=== PATIENT | female | born 1960 | race Caucasian/White ===

== ENCOUNTER → 2025-01-18 | Outpatient (CLI) | payer MEDICARE, SELFPAY | END | disposition home or self-care (01) | LOC: CDIM 15:16 | PROVIDERS: PCP Family Medicine; Referring Provider Family Medicine; Visit Provider Family Medicine | DX: Z53.8 Procedure and treatment not carried out for other reasons (principal) ==

== ENCOUNTER → 2025-02-07 | Outpatient (CLI) | payer MEDICARE, SELFPAY | END | disposition home or self-care (01) | PROVIDERS: PCP Family Medicine; Referring Provider Family Medicine; Visit Provider Family Medicine | DX: Z53.8 Procedure and treatment not carried out for other reasons (principal) ==

== ENCOUNTER 2025-02-12 08:07 | Inpatient (IN) | payer MEDICARE, SELFPAY ==
[2025-02-12] VITALS (10 sets, daily range): BP systolic 115–147; BP diastolic 60–99; PULSE 97–110; RESP 15–18; TEMP 36.2–37.1; O2SAT 93–99; BMI 19.9
--- NOTE | 2025-02-12 08:30 | PC.NURSE ---
PT HAD AN UNWITNESSED FALL AT HOME. PT SAYS SHE FELT DIZZY AND PASSED OUT. PT STATES SHE HIT THE RIGHT SIDE OF HER FOREHEAD ON A WOODEN CHAIR; SHE IS NOT ON BLOOD THINNERS. CONNECTED TO MONITOR W/ VS TAKEN. AT BEDSIDE. WILL CONT TO MONITOR.
--- NOTE | 2025-02-12 08:40 | PD.EDFALL ---
ED Fall Injury RME/HPI General Chief Complaint: Fall Stated Complaint: DIZZY, FALL, HIT R) FOREHEAD Time Seen by Provider: 02/12/25 08:30 Arrival date/time: 02/12/25 08:07 RME / HPI RME / HPI Narrative: DR. NELSON MAIN ED EVALUATION: 64 year old female presents to the Emergency Department [facility] with complaint of a fall. Patient was walking her pets out when she fell in the laundry room. She states she got dizzy and fell. She hit her head on a wooden chair; patient report a headache. She also has left foot pain/ left ankle pain and states she scraped her back. Related Data Home Medications ?Medication ?Instructions ?Recorded ?Confirmed amitriptyline 25 mg PO HS 08/08/18 11/20/20 gabapentin 600 mg PO TID 08/08/18 11/20/20 mirtazapine [Remeron] 15 mg PO HS 08/08/18 11/20/20 tramadol 50 mg PO QID 08/08/18 11/20/20 baclofen 10 mg tablet 10 mg PO TID 11/20/20 11/20/20 rosuvastatin 10 mg tablet (Crestor) 10 mg PO QDAY 11/20/20 11/20/20 zolpidem 10 mg tablet (Ambien) 10 mg PO HS 11/20/20 11/20/20 Allergies Allergy/AdvReac Type Severity Reaction Status Date / Time codeine Allergy Severe RASH AND Verified 11/20/20 10:07 HYPERACTIVITY Sulfa (Sulfonamide Allergy Severe HIVES Verified 11/20/20 10:07 Antibiotics) Review of Systems Review of Systems Systems Reviewed: All systems reviewed, normal except as documented Past Medical History Past Medical History MUSCULOSKELETAL: Positive Musculoskeletal Disorders OTHER HISTORY: Positive Blood Transfusions Surgical History SURGICAL: Positive Tubal Ligation Social History SMOKING STATUS: Current every day smoker SUBSTANCE USE: does not use ALCOHOL: Never ED Exam Narrative Physical exam: GENERAL APPEARANCE: alert and oriented x 4, well-developed, well-nourished, no acute distress VITALS: All vitals were reviewed and the pulse ox is 93% on room air, which is normal according to my interpretation. HEENT: Normocephalic, atraumatic appearing; pupils equal, round, reactive to light; EOMI; mucous membranes pink, moist; oropharynx clear NECK: Supple LUNGS: CTABL; no wheezes, no rales, no rhonchi HEART: Regular rate, regular rhythm; normal S1, S2; no murmurs ABDOMEN: non distended; normal BS; soft, no tenderness, no guarding, no rebound; no masses, no organomegaly, no hernia BACK: no CVA tenderness EXTREMITIES: atraumatic; no edema; no tenderness, deformity, or erythema of the left foot NEUROLOGIC: awake; alert and oriented x4; cranial nerves II-XII grossly intact; no focal sensory or motor deficits PSYCHIATRIC: appropriate mood and affect SKIN: There is an abrasion to the left posterior shoulder; otherwise rest of the skin exam is warm, dry, normal color; no rashes Course Quality Measures none Orders Category Date Time Status Admit to Inpatient Status Routine Admission 02/12/25 15:15 Active Patient Condition Routine Admission 02/12/25 15:14 Ordered Automotive Customer Experience Advisor NOW Care 02/12/25 08:51 Active EKG (ED ONLY) *Do not use* NOW Care 02/12/25 08:51 Completed Miscellaneous Nursing Order NOW Care 02/12/25 15:19 Active Notify provider NEEDED Care 02/12/25 15:14 Active Diet Regular Diet 02/12/[address] cervical spine wo con Stat Exams 02/12/25 08:[address] head/brain wo con Stat Exams 02/12/25 08:50 Completed EKG (ED Only) Stat Exams 02/12/25 08:51 Draft XR chest 1V portable Stat Exams 02/12/25 08:51 Completed B-Type Natriuretic Peptide Stat Lab 02/12/25 08:35 Completed CBC AM DRAW Lab 02/13/25 05:00 Ordered CBC AM DRAW Lab 02/14/25 05:00 Ordered CBC AM DRAW Lab 02/15/25 05:00 Ordered CBC Stat Lab 02/12/25 08:35 Completed Comprehensive Metabolic Panel AM DRAW Lab 02/13/25 05:00 Ordered Comprehensive Metabolic Panel AM DRAW Lab 02/14/25 05:00 Ordered Comprehensive Metabolic Panel AM DRAW Lab 02/15/25 05:00 Ordered Comprehensive Metabolic Panel Stat Lab 02/12/25 08:35 Completed Lactate (Lactic Acid) Stat Lab 02/12/25 10:47 Completed Magnesium AM DRAW Lab 02/13/25 05:00 Ordered Magnesium Stat Lab 02/12/25 08:35 Completed Partial Thromboplastin Time Stat Lab 02/12/25 08:35 Completed Phosphorous AM DRAW Lab 02/13/25 05:00 Ordered Procalcitonin Stat Lab 02/12/25 10:47 Completed Prothrombin Time with INR Stat Lab 02/12/25 08:35 Completed Thyroid Stimulating Hormone AM DRAW Lab 02/13/25 05:00 Ordered Troponin I Stat Lab 02/12/25 08:35 Completed UA, C/S IF [Urinalysis, C/S if Indicated] Stat Lab 02/12/25 11:46 Completed Urine Culture Stat Lab 02/12/25 11:46 Received Acetaminophen Tab [Tylenol Tab] Med 02/12/25 15:14 Active 650 mg PO Q6H PRN Enoxaparin [Lovenox] Med 02/12/25 21:00 Ordered 40 mg SC QDAY Ondansetron Inj [Zofran Inj] Med 02/12/25 15:14 Active 4 mg IV Q6H PRN Senna [Senokot] Med 02/12/25 15:14 Ordered 1 tab PO QDAY PRN Sodium Chloride 0.9% 1000 ml [Ns] 1,000 ml Med 02/12/25 13:18 Discontinued IV 999 mls/hr cefTRIAXone/D5w 1gm IV premix [Rocephin/D5w 1gm IV Med 02/12/25 12:41 Discontinued premix] 1 gm in 50 ml IV X1 Code Status Routine Oth 02/12/25 15:14 Ordered Oxygen Delivery PRN RT 02/12/25 15:14 Active Vital Signs Vital signs: Vital Signs Temperature 98.5 F 02/12/25 08:38 Pulse Rate 106 H 02/12/25 08:38 Respiratory Rate 17 02/12/25 08:38 Blood Pressure 121/99 H 02/12/25 08:38 Pulse Oximetry (%) 93 L 02/12/25 08:38 Oxygen Delivery Method Room Air 02/12/25 08:38 Fall MDM Narrative MDM Narrative:: Alexa Patterson am scribing for and in the presence of Dr. Nelson. Patient data External records reviewed:: [facility] previous records and EMS form Clinical information provided by:: patient and EMS Social determinants that could affect healthcare access:: substance use (marijuana at night to sleep) Patient has the following chronic illnesses:: Tubal Ligation How is presenting disease/condition affected by chronic disease/condition?: no chronic disease Evaluation data The following diagnostics were reviewed and interpreted by me:: lab results, radiology exam(s) and EKG tracing(s) (EKG#1: EKG at 0942 hours. Interpreted by me: sinus rhythm, rate 93, no acute ischemic changes) Lab and/or radiology exams considered but not ordered:: none Interpretation Summary: Procedure(s): XR chest 1V portable Accession Number(s): [id number] cc: Steve Lindo MD; Luz Nelson MD~ Examination: AP chest single view TECHNIQUE: Portable sitting AP chest single view Exam date and time: February 12, 2025 0908 hours INDICATIONS: Chest pain today. FINDINGS: Normal heart size No pneumonia or pulmonary edema Prominent osteopenia IMPRESSION: No pneumonia or pulmonary edema Dictated By: Steve Lindo MD Procedure(s): CT head/brain wo [facility] Accession Number(s): [id number] cc: Steve Lindo MD; Venkat Chaudhari MD; Luz Nelson MD~ Examination: CT brain head without contrast. 2-D sagittal coronal reconstructions Date and time of exam:February 12, 2025 1012 hours INDICATIONS: Syncopal episode today ground-level fall, head pain CTDI: vol (mGy):49 DLP: (mGycm):984 Technique: Multiple CT axial sections of the brain have been obtained, 5 mm slice thickness. Contrast has not been administered. 2-D sagittal, coronal reconstructions have been obtained Low dose protocols were performed. One or more of the following dose reduction techniques were used; automated exposure control, adjustment of the mA and/or KV according to patient size, use of iterative reconstruction technique. Findings: No significant ventricular enlargement. Intra-axial or extra-axial hemorrhage density is not seen. No mass effect or midline shift Basal cisterns are not remarkable. Fourth ventricle is midline. Cranial vault intact. Impression: Negative for acute hemorrhage, mass effect or midline shift Dictated By: Steve Lindo MD Procedure(s): CT cervical spine [facility] Accession Number(s): [id number] cc: Steve Lindo MD; Venkat Chaudhari MD; Luz Nelson MD~ Examination: CT cervical spine without contrast 2-D sagittal reconstructions 2-D coronal reconstructions 3-D reconstructions. Exam date and time:February 12, 2025 1012 hours INDICATIONS: Ground-level fall today with into the neck, neck pain CTDI:vol (mGy) 7.09 DLP: (mGycm) 153 Technique: Multiple 2 mm axial sections of the cervical spine have been obtained. The coronal and sagittal reconstructions have been obtained. 3-D reconstructions have been obtained. Low dose protocols were performed. One or more of the following dose reduction techniques were used; automated exposure control, adjustment of the mA and/or KV according to patient size, use of iterative reconstruction technique. Findings: Axial sections demonstrate intact base of the skull. C1 exhibit satisfactory relationship to the odontoid. No acute cervical vertebral body fracture seen. Alignment posterior spinous processes satisfactory. Impression: No acute cervical fracture. Dictated By: Steve Lindo MD Medications / Prescriptions Medications or Prescriptions considered but not ordered:: none Medication administrations:: Medication Administration History Acetaminophen (Acetaminophen 325 Mg Tablet) 650 mg PO Q6H PRN PRN Reason: Fever >100.3 or pain Stop: 03/14/25 15:13 Enoxaparin Sodium (Enoxaparin Sod Inj 40 Mg/0.4 Ml Syringe) 40 mg SC QDAY AUTUMN Stop: 02/26/25 20:59 Ondansetron HCl (Ondansetron Inj 2 Mg/Ml Inj 2 Ml) 4 mg IV Q6H PRN; Protocol PRN Reason: NAUSEA OR VOMITING Stop: 03/14/25 15:13 Sennosides (Senna Tablet) 1 tab PO QDAY PRN; Protocol PRN Reason: constipation Stop: 03/14/25 15:13 Discontinued Medications Ceftriaxone Sodium/Dextrose (Rocephin/D5w 1gm Iv Premix) 1 gm in 50 mls @ 100 mls/hr IV X1 ONE Stop: 02/12/25 13:10 Last Infusion: 02/12/25 13:35 Dose: Infused Documented By: Admin: 02/12/25 13:05 Dose: 100 mls/hr Documented By: LP Sodium Chloride (Ns) 1,000 mls @ 999 mls/hr IV .Q1H1M ONE Stop: 02/12/25 14:18 Last Infusion: 02/12/25 15:05 Dose: Infused Documented By: Admin: 02/12/25 13:46 Dose: 999 mls/hr Documented By: LP see above if any Consultations Consultation(s) initiated? (list below): Yes Consultation #1 (Physician, Specialty, Details): Discussed test HPI, PMHx, lab, radiology results and/or management with hospitalist. Will admit for further evaluation and management. Accepts patient for admission. Time: 15:00 Diagnosis Fall Differential Diagnosis: other (head contusion, brain bleed, fall) Most likely diagnosis given after review of the tests above:: Syncope UTI Sepsis Admission Indicated Admission indicated?: indicated Admission Request Was there a request for admission?: Yes Admission Attestation Admission request attestation: Discussed case with [] from Hospitalist service regarding admission. Discussed patients ED course, exam findings, labs, and radiology results. The Hospitalist [agrees,declines] to accept the patient for admission. Disposition Plan Disposition Plan: Admit Discharge Plan Plan Patient Disposition: Admit Acute Care w/in Hospital Prescriptions/Referrals Prescriptions/Med Rec: No Action tramadol 50 mg PO QID gabapentin 600 mg PO TID amitriptyline 25 mg PO HS mirtazapine [Remeron] 15 mg PO HS baclofen 10 mg Tablet 10 mg PO TID zolpidem [Ambien] 10 mg Tablet 10 mg PO HS rosuvastatin [Crestor] 10 mg Tablet 10 mg PO QDAY Referrals: Venkat Chaudhari MD [Primary Care Provider] - In 1 week Problem List Clinical Impression: Syncope, UTI (urinary tract infection), Sepsis Patient/Caregiver Discharge Instructions Print Language: Luxembourgish Stand Alone Forms: Mis Award Info., Patient Portal Info Letter
--- NOTE | 2025-02-12 08:50 | XR_ITS ---
Examination: CT brain head without contrast. 2-D sagittal coronal reconstructions Date and time of exam:February 12, 2025 1012 hours INDICATIONS: Syncopal episode today ground-level fall, head pain CTDI: vol (mGy):49 DLP: (mGycm):984 Technique: Multiple CT axial sections of the brain have been obtained, 5 mm slice thickness. Contrast has not been administered. 2-D sagittal, coronal reconstructions have been obtained Low dose protocols were performed. One or more of the following dose reduction techniques were used; automated exposure control, adjustment of the mA and/or KV according to patient size, use of iterative reconstruction technique. Findings: No significant ventricular enlargement. Intra-axial or extra-axial hemorrhage density is not seen. No mass effect or midline shift Basal cisterns are not remarkable. Fourth ventricle is midline. Cranial vault intact. Impression: Negative for acute hemorrhage, mass effect or midline shift
--- NOTE | 2025-02-12 08:50 | XR_ITS ---
Examination: CT cervical spine without contrast 2-D sagittal reconstructions 2-D coronal reconstructions 3-D reconstructions. Exam date and time:February 12, 2025 1012 hours INDICATIONS: Ground-level fall today with into the neck, neck pain CTDI:vol (mGy) 7.09 DLP: (mGycm) 153 Technique: Multiple 2 mm axial sections of the cervical spine have been obtained. The coronal and sagittal reconstructions have been obtained. 3-D reconstructions have been obtained. Low dose protocols were performed. One or more of the following dose reduction techniques were used; automated exposure control, adjustment of the mA and/or KV according to patient size, use of iterative reconstruction technique. Findings: Axial sections demonstrate intact base of the skull. C1 exhibit satisfactory relationship to the odontoid. No acute cervical vertebral body fracture seen. Alignment posterior spinous processes satisfactory. Impression: No acute cervical fracture.
--- NOTE | 2025-02-12 08:51 | XR_ITS ---
Examination: AP chest single view TECHNIQUE: Portable sitting AP chest single view Exam date and time: February 12, 2025 0908 hours INDICATIONS: Chest pain today. FINDINGS: Normal heart size No pneumonia or pulmonary edema Prominent osteopenia IMPRESSION: No pneumonia or pulmonary edema
--- NOTE | 2025-02-12 08:51 | EKG_ITS ---
[facility] Test Date: 2025-02-12 Pat Name: GRETCHEN DOUGLAS Department: Room: - Gender: Female Marketing Support Coordinator: : 1960 Requested By: Luz Flores Order Number: [id number] Reading MD: Luz Flores Measurements Intervals [place] Rate: 93 P: 75 AL: 159 QRS: 72 QRSD: 79 T: 76 QT: 329 QTc: 409 Interpretive Statements SINUS RHYTHM WITH OCCASIONAL VENTRICULAR PREMATURE COMPLEXES No previous ECG available for comparison /store/S0/[id number]/ecg/[id number].pdf
[2025-02-12 09:49] LABS: Basophils % (Auto) 0 % (0-2.5); Eosinophils % (Auto) 0 % (0-10); Hematocrit 36.5 % (36.0-46.0); Hemoglobin 12.5 g/dL (12.0-16.0); Immature Granulocytes % (Auto) 2 % (0-0); Immature Granulocytes Auto 0.29 Thou/mm3 (0.00-0.00); Lymphocytes # (Auto) 0.9 Thou/mm3 (1.0-4.8); Lymphocytes % (Auto) 5 % (10-50); Mean Corpuscular HGB Conc 34.2 g/dl (31.0-37.0); Mean Corpuscular Volume 96 fL (80-100); Monocytes # (Auto) 1.7 Thou/mm3 (0.0-0.8); Monocytes % (Auto) 9 % (0-12); Neutrophils # (Auto) 16.2 Thou/mm3 (1.8-7.7); Neutrophils % (Auto) 85 % (37-80); Nucleated Red Blood Cell % 0 /100 WBC (0); Platelet Count 321 Thou/mm3 (140-440); RDW Standard Deviation 47.4 fL (36.4-46.3); Red Blood Count 3.79 Miln/mm3 (4.00-5.20); White Blood Count 19.1 Thou/mm3 (3.6-11.0)
[2025-02-12 10:06] LABS: INR 0.9 (0.9-1.3); Partial Thromboplastin Time 26.8 Seconds (22.0-36.0); Prothrombin Time 10.4 Seconds (9.0-12.2)
[2025-02-12 10:07] LABS: Alanine Aminotransferase 70 U/L (10-49); Albumin/Globulin Ratio 1.3 (1.2-2.2); Alkaline Phosphatase 248 U/L (46-116); Anion Gap 8 (7-16); Aspartate Amino Transferase 56 U/L (0-34); BUN/Creatinine Ratio 19 Ratio (12-20); Bilirubin,Total 0.3 mg/dL (0.3-1.2); Blood Urea Nitrogen 29 mg/dL (9-23); Calcium 9.1 mg/dL (8.3-10.6); Calcium (Corrected) 9.1 mg/dL (8.5-10.1); Chloride 108 mMol/L (98-107); Creatinine (Component) 1.5 mg/dL (0.6-1.3); Glucose 97 mg/dL (74-106); Magnesium 2.2 mg/dL (1.6-2.6); Osmolality,Calculated 287 (275-295); Potassium 3.8 mMol/L (3.4-5.1); Sodium 141 mMol/L (136-145); Troponin I < 0.020 ng/mL (0.0-0.045); eGFR 38 See Note
[2025-02-12 10:29] LABS: B-Type Natriuretic Peptide 53 pg/mL (0-100)
[2025-02-12 10:55] LABS: Lactate (Lactic Acid) 0.8 mMol/L (0.4-2.0)
[2025-02-12 11:19] LABS: Procalcitonin 17.64 ng/ml (0.0-0.49)
[2025-02-12 11:52] LABS: Collection Type, Urine Clean Catch
[2025-02-12 12:34] LABS: Bacteria,Urine 3+; Bilirubin,Urine Negative (Negative); Blood,Urine 2+ (Negative); Clarity,Urine Turbid (Clear/Hazy); Color,Urine Lt-Yellow (Lt Yel-Yel); Glucose, Urine Negative (Negative); Ketones,Urine Trace (Negative); Leukocyte Esterase,Urine Positive (Negative); Nitrite,Urine Negative (Negative); Protein,Urine 1+ (Neg - Trace); RBC,Urine 74 /hpf (0-3); Squamous Epithelial Cell,Urine < 1 /hpf (0-5); Transitional Epi Cells,Urine 1 /hpf (0-5); Urobilinogen,Urine Negative mg/dL (0.0-1.0); WBC,Urine 328 /hpf (0-5)
[2025-02-12 12:53] LABS: Culture Indicated,Urine Yes
[2025-02-12] MEDS: cefTRIAXone/D5w 1gm IV premix 1 GM/50 ML BAG IV (13:05)
[2025-02-12] MEDS: SODIUM CHLORIDE 0.9% 1000 ML 1,000 ML 999 ML IV ×2 (13:46→16:48)
--- NOTE | 2025-02-12 16:26 | PD.RESHP ---
Documentation for date of: 02/12/25 [facility] History of Present Illness Chief complaint: keep falling History of present illness: Kimmie Wild is 64 yr female with PMH of, hypertension, neuropathy, chronic back pain, and insomnia who presenting to the ED today from home due to frequent falls. Patient has been experiencing increased number of falls since past month with about 5?6 in the past week. This morning patient fell twice while getting up from the sofa. She felt slightly dizzy and fell while was trying to support her. Patient hit her head on the chair and landed on her back. She denies any loss of consciousness, no prodromal symptoms, and dizziness resolves rapidly. Also denies any chest pain, shortness of breath, nausea, vomiting. She is able to get up slowly with help from her . No major injuries except for some brusing. Patient endorses decreased appetite and dysuria for past 2 days. In ED, vitals were stable. CBC showing leukocytosis 19, CMP significant for elevated creatinine 1.5 (no baseline to compare with in chart review), GFR 38, lactic acid normal 0.8, mild transaminitis AST 56/ALT 70/ALP 248, elevated Pro-Zoran 17. UA positive for UTI with WBC 328, leukocyte esterase positive, 3+ bacteria. Chest imaging negative for active disease, CT head negative for acute changes, cervical spine negative, EKG showing no ST changes--in normal sinus rhythm. Patient was given 1 bolus of fluids and 1 g Rocephin x 1. Patient to be admitted for management of UTI with antibiotics and evaluation of frequent falls. PMH: As noted above PSH: Appendectomy, cholecystectomy, back surgery at the age of 18 FamHx: Unknown Social: Currently unemployed used to work at [employer], started smoking at the age of 7 (has been trying to quit, weaned down to approximately 5 cigarettes/day). Denies drinking, drug use. Allergies: Codeine, sulfa antibiotics Meds: Gabapentin 300 3 times daily, amlodipine 2.5 daily, baclofen 20 twice daily, amitriptyline 25 mg at bedtime, olmesartan 5mg daily Review of Systems Constitutional Constitutional: Reports system reviewed and no additional complaints, except as documented Exam Vital Signs Temp Pulse Resp BP Pulse Ox O2 Del Method 98.4 F 100 18 132/61 H 96 Room Air 02/12/25 14:15 02/12/25 14:15 02/12/25 14:15 02/12/25 14:15 02/12/25 14:15 02/12/25 14:15 Narrative Exam General: Elderly lady, no acute distress, cooperative HEENT: NCAT, No JVD noted. Mucosa dry, missing front teeth. Pupils are equal and reactive to light bilaterally Cardiovascular: Normal S1 and S2. Regular rate and rhythm. Respiratory: Lungs are clear to auscultation bilaterally. No wheezing or crackles heard. Abdomen: Soft, nontender, not distended, normal bowel sounds. Skin: Warm to touch, dry, no rashes noted. Bruising noticed on knees bilaterally Musculoskeletal: No gross injuries. Able to move all 4 extremities. No pitting edema Neuro: Alert and oriented x3. No focal neuro deficits. Psych: Normal affect and mood Results: Labs 02/12/25 08:35 02/12/25 08:35 Labs: Short CBC 02/12/25 Range/Units 08:35 WBC 19.1 H (3.6-11.0) Thou/mm3 Hgb 12.5 (12.0-16.0) g/dL Hct 36.5 (36.0-46.0) % Plt Count 321 (140-440) Thou/mm3 BMP 02/12/25 08:35 Sodium 141 Potassium 3.8 Chloride 108 H Carbon Dioxide 25.0 BUN 29 H Creatinine 1.5 H Glucose 97 Calcium 9.1 Cardiac Enzymes 02/12/25 Range/Units 08:35 Troponin I < 0.020 (0.0-0.045) ng/mL Liver Function 02/12/25 Range/Units 08:35 Total Bilirubin 0.3 (0.3-1.2) mg/dL AST 56 H (0-34) U/L ALT 70 H (10-49) U/L Alkaline Phosphatase 248 H (46-116) U/L Albumin 4.0 (3.4-4.8) gm/dL Urine 02/12/25 Range/Units 11:46 Urine Color Lt-Yellow (Lt Yel-Yel) Urine Clarity Turbid A (Clear/Hazy) Urine pH 6.0 (5.0-7.0) Ur Specific [place] 1.010 (1.001-1.035) Urine Protein 1+ A (Neg - Trace) Urine Glucose (UA) Negative (Negative) Quality Measures Quality Measures none Advance care planning discussed with:: patient Medications Home Medications and Allergies Home Medications ?Medication ?Instructions ?Recorded ?Confirmed ?Type amitriptyline 25 mg PO HS 08/08/18 11/20/20 History gabapentin 600 mg PO TID 08/08/18 11/20/20 History mirtazapine [Remeron] 15 mg PO HS 08/08/18 11/20/20 History tramadol 50 mg PO QID 08/08/18 11/20/20 History baclofen 10 mg tablet 10 mg PO TID 11/20/20 11/20/20 History rosuvastatin 10 mg tablet (Crestor) 10 mg PO QDAY 11/20/20 11/20/20 History zolpidem 10 mg tablet (Ambien) 10 mg PO HS 11/20/20 11/20/20 History Allergies Allergy/AdvReac Type Severity Reaction Status Date / Time codeine Allergy Severe RASH AND Verified 11/20/20 10:07 HYPERACTIVITY Sulfa (Sulfonamide Allergy Severe HIVES Verified 11/20/20 10:07 Antibiotics) Visit Medications Acetaminophen (Acetaminophen 325 Mg Tablet) 650 mg PO Q6H PRN PRN Reason: Fever >100.3 or pain Stop: 03/14/25 15:13 Enoxaparin Sodium (Enoxaparin Sod Inj 40 Mg/0.4 Ml Syringe) 40 mg SC HS AUTUMN Stop: 02/26/25 20:59 Sodium Chloride (Ns) 1,000 mls @ 999 mls/hr IV .Q1H1M ONE Stop: 02/12/25 17:18 Sodium Chloride (Ns) 1,000 mls @ 75 mls/hr IV .[id number] ONE Stop: 02/13/25 10:19 Ceftriaxone Sodium/Dextrose (Rocephin/D5w 1gm Iv Premix) 1 gm in 50 mls @ 100 mls/hr IV QDAY@1400 AUTUMN Stop: 02/20/25 13:59 Ondansetron HCl (Ondansetron Inj 2 Mg/Ml Inj 2 Ml) 4 mg IV Q6H PRN; Protocol PRN Reason: NAUSEA OR VOMITING Stop: 03/14/25 15:13 Sennosides (Senna Tablet) 1 tab PO QDAY PRN; Protocol PRN Reason: constipation Stop: 03/14/25 15:13 Discontinued Medications Ceftriaxone Sodium/Dextrose (Rocephin/D5w 1gm Iv Premix) 1 gm in 50 mls @ 100 mls/hr IV X1 ONE Stop: 02/12/25 13:10 Last Infusion: 02/12/25 13:35 Dose: Infused Sodium Chloride (Ns) 1,000 mls @ 999 mls/hr IV .Q1H1M ONE Stop: 02/12/25 14:18 Last Infusion: 02/12/25 15:05 Dose: Infused Assessment & Plan Plan Kimmie Wild is 64 yr female with PMH of, hypertension, neuropathy, chronic back pain, and insomnia who presenting to the ED today from home due to frequent falls. Patient has been experiencing increased number of falls since past month with about 5?6 in the past week. She denies any loss of consciousness, no prodromal symptoms, and dizziness resolves rapidly. Patient endorses decreased appetite and dysuria for past 2 days. #Frequent falls Patient has been experiencing increased number of falls in the past month with 5-6 in the past week. Does not lose any loss of consciousness, no prodromal symptoms. May be due to polypharmacy, orthostatic hypotension, cardiac etiology, decreased oral intake. CT head, cervical spine negative for acute changes. - orthostatic vitals ?Echo pending ? Physical therapy -TSH pending #Uncomplicated UTI # Leukocytosis Patient endorses decreased appetite and dysuria for past 2 days. UA positive for UTI with WBC 328, leukocyte esterase positive, 3+ bacteria. - Urine culture pending ? Continue IV Rocephin 1 g daily for 7 days #MARIUM Cr 1.5, GFR 38, BUN/creatinine< 20 indicating that etiology is less likely prerenal cause. However during history taking patient has endorsed decreased appetite with decreased water intake. No recent baseline creatinine noted in chart. -maintenance fluids tonight after another 1L bolus -avoid nephrotoxic agents -daily CMP #Transaminitis AST 56, ALT 70, ALP 248 on admission. May be due to dehydration. Physical exam is benign. - Monitor LFTs with fluids #Hx neuropathy #Hx hypertension #Hx COPD #Hx Chronic back pain #Hx Insomnia Resume home meds after rec. Health maintenance: Dispo: UTI, eval for frequent falls FEN: regular DVT prophylaxis:Lovenox CODE STATUS: Full code The patient's management plan was discussed with my attending physician Dr. Lam. Joseline Resendiz, PGY-1 Attending Provider Attestation/Addendum I attest that I was physically present for the evaluation, physical examination, lab and imaging review of the patient with the residents. I discussed the case with the residents and agree with the findings and plans of care as documented above. Patient is a 64 years old female with past medical history of hypertension, neuropathy, chronic back pain and insomnia who presented to the ED with complaint of frequent falls. Patient had about 5 to 6 months of falls in the last week. She has been feeling dizzy and having the fall whenever she tries to get up from her sitting position. Denied any loss of consciousness, headache, nausea or vomiting but stated it her head was falling. In the ED, vitals are within normal limits. CBC shows WBC of 19, CMP shows creatinine of 1.5, mild AST and ALT elevation at 56/70. ALP 248, procalcitonin 17. UA was obtained, shows WBC of 328, positive leukocyte esterase and 3+ bacteria. CT head was also obtained which is negative for acute hemorrhage, mass effect or midline shift. Chest imaging, cervical spine CT, EKG were unremarkable. We will admit the patient for management of frequent falls, concerning for orthostatic hypotension. We will obtain orthostatic vitals, echocardiography, physical therapy. We will also start her on IV antibiotics for UTI, we will obtain cultures. Unsure of patient's baseline creatinine, we will start her on IV hydration for MARIUM. We will follow-up on her liver panel after the IV hydration, if does not improve we will plan for liver ultrasound. So Lam MD
--- NOTE | 2025-02-12 16:50 | PC.NURSE ---
REPORT CALLED TO DASHA BARNES ON [facility]. PT WILL BE TRANSFERRED TO ROOM [address] [facility]
--- NOTE | 2025-02-12 17:30 | PC.NURSE ---
PT TRANSFERRED TO ROOM 355 VIA GURNEY ACCOMPANIED BY RN. CARE ENDORSED TO DASHA BARNES.
[2025-02-12] MEDS: ACETAMINOPHEN 325 MG TABLET 650 MG PO (20:20)
[2025-02-12] MEDS: SODIUM CHLORIDE 0.9% 1000 ML 1,000 ML 75 ML IV (20:20)
[2025-02-12] MEDS: ENOXAPARIN SOD INJ 40 MG/0.4 ML SYRINGE SC (20:21)
--- NOTE | 2025-02-12 20:42 | PC.NURSE ---
Dr. Arzate notified of patient's unrelieved generalized pain from recent fall. Awaiting new orders.
[2025-02-12] MEDS: HYDROcodone/APAP 5/325 TABLET 1 TAB PO (21:15)
[2025-02-13] VITALS (10 sets, daily range): BP systolic 128–153; BP diastolic 66–79; PULSE 85–108; RESP 16–99; TEMP 36.1–37.1; O2SAT 92–98
[2025-02-13] MEDS: HYDROcodone/APAP 5/325 TABLET 1 TAB PO ×2 (03:01→09:38)
[2025-02-13] MEDS: BACLOFEN 10 MG TABLET PO ×3 (08:18→21:31)
[2025-02-13] MEDS: amLODIPine BESYLATE 2.5 MG TABLET PO (08:18)
[2025-02-13] MEDS: GABAPENTIN 300 MG CAPSULE 600 MG PO ×3 (08:18→21:31)
[2025-02-13 09:05] LABS: Basophils # (Auto) 0.1 Thou/mm3 (0.0-0.2); Basophils % (Auto) 0 % (0-2.5); Eosinophils # (Auto) 0.1 Thou/mm3 (0.0-0.5); Eosinophils % (Auto) 0 % (0-10); Hemoglobin 12.1 g/dL (12.0-16.0); Immature Granulocytes % (Auto) 2 % (0-0); Immature Granulocytes Auto 0.27 Thou/mm3 (0.00-0.00); Lymphocytes # (Auto) 1.1 Thou/mm3 (1.0-4.8); Lymphocytes % (Auto) 8 % (10-50); Mean Corpuscular HGB Conc 33.6 g/dl (31.0-37.0); Mean Corpuscular Hemoglobin 32.2 pg (25.0-35.0); Mean Corpuscular Volume 96 fL (80-100); Monocytes % (Auto) 7 % (0-12); Neutrophils # (Auto) 11.2 Thou/mm3 (1.8-7.7); Neutrophils % (Auto) 82 % (37-80); Nucleated Red Blood Cell % 0 /100 WBC (0); Platelet Count 368 Thou/mm3 (140-440); RDW Standard Deviation 47.4 fL (36.4-46.3); Red Blood Count 3.76 Miln/mm3 (4.00-5.20); White Blood Count 13.6 Thou/mm3 (3.6-11.0)
--- NOTE | 2025-02-13 09:40 | PC.NURSE ---
Pt's Left Lower Extremity swollen and weak. Told patient that she must remain in bed until PT eval. Patient refuses to stay in bed. Will not use bedpan or comode. Pt states, I can call you to come help me to the restroom or I can go on my own and the alarm will just make a lot of noise. That's up to you. I told patient it is for her safety that we have PT do their assessment first. I let her know I would call PT to see when the soonest is they can come. She said that is fine but she will not stay in bed. Bed is low, locked, side rails up X2, and alarm is on.
[2025-02-13 09:50] LABS: Alanine Aminotransferase 56 U/L (10-49); Albumin, Serum 3.9 gm/dL (3.4-4.8); Albumin/Globulin Ratio 1.3 (1.2-2.2); Alkaline Phosphatase 263 U/L (46-116); Anion Gap 7 (7-16); Aspartate Amino Transferase 42 U/L (0-34); BUN/Creatinine Ratio 21 Ratio (12-20); Bilirubin,Total 0.5 mg/dL (0.3-1.2); Blood Urea Nitrogen 17 mg/dL (9-23); Calcium 8.7 mg/dL (8.3-10.6); Calcium (Corrected) 8.8 mg/dL (8.5-10.1); Chloride 112 mMol/L (98-107); Creatinine (Component) 0.8 mg/dL (0.6-1.3); Estimated Creatinine Clearance 59.4 mL/min (>60); Globulin 3.1 gm/dL (2.3-3.5); Glucose 102 mg/dL (74-106); Magnesium 1.8 mg/dL (1.6-2.6); Osmolality,Calculated 286 (275-295); Phosphorous 3.3 mg/dL (2.4-5.1); Potassium 3.1 mMol/L (3.4-5.1); Sodium 143 mMol/L (136-145); Thyroid Stimulating Hormone 0.89 uIU/mL (0.55-4.78); eGFR > 60 See Note
[2025-02-13] MEDS: POTASSIUM CHLORIDE 20 mEq TABCR 40 MEQ PO ×2 (11:37→12:41)
--- NOTE | 2025-02-13 12:36 | XR_ITS ---
Examination: Left foot 2 views Technique one AP lateral left foot 2 views Exam date and time: February 13, 2025 1324 hours INDICATIONS: Patient fell today with injury to foot, foot pain. FINDINGS: Prominent osteopenia Subtle radiolucency involving the proximal aspect third metatarsal 8mm plantar bony calcaneal spur IMPRESSION: Recommend oblique foot follow-up to exclude nondisplaced fracture proximal third metatarsal
--- NOTE | 2025-02-13 13:40 | ESPR_ITS ---
Documentation for date of: 02/13/25 Subjective Subjective Interval history: Patient seen and examined at bedside. No events overnight. Patient complains of LL foot pain, left sided body pain from fall. This morning daughter was also at beside. Daughter was adamant about giving patient a shower before PT evaluation. They were strongly advised against this with risks of falling. However patient still stood and walked for shower. Left foot was swollen and tender, foot xray negative for definitive fracture. Radiolgy rec to repeat xray in 1-2 days. Continue with Tylenol and [place] 10 every 4 hours as needed for pain and Colin wrap with ice. Exam Vital Signs Temp Pulse Resp BP Pulse Ox O2 Del Method 98.8 F 93 18 145/73 H 92 L Room Air 02/13/25 12:00 02/13/25 12:00 02/13/25 12:00 02/13/25 12:00 02/13/25 12:00 02/13/25 12:00 Narrative Exam General: Elderly lady, no acute distress, cooperative HEENT: NCAT, No JVD noted. Mucosa dry, missing front teeth. Pupils are equal and reactive to light bilaterally Cardiovascular: Normal S1 and S2. Regular rate and rhythm. Respiratory: Lungs are clear to auscultation bilaterally. No wheezing or crackles heard. Abdomen: Soft, nontender, not distended, normal bowel sounds. Skin: Warm to touch, dry, no rashes noted. Bruising noticed on knees bilaterally Musculoskeletal: Left foot swollen and tender to touch. Able to move all 4 extremities. No pitting edema Neuro: Alert and oriented x3. No focal neuro deficits. Psych: Normal affect and mood Objective Labs 02/13/25 08:00 02/13/25 08:00 Labs: Laboratory Results - last 24 hr 02/13/25 08:00 WBC 13.6 H D RBC 3.76 L Hgb 12.1 Hct 36.0 MCV 96 MCH 32.2 MCHC 33.6 RDW Std Deviation 47.4 H Plt Count 368 D Neut % (Auto) 82 H Lymph % (Auto) 8 L Christian % (Auto) 7 Eos % (Auto) 0 Baso % (Auto) 0 Neut # (Auto) 11.2 H Lymph # (Auto) 1.1 Christian # (Auto) 1.0 H Eos # (Auto) 0.1 Baso # (Auto) 0.1 Immature Gran # (Auto) 0.27 H Absolute Nucleated RBC 0.00 Immature Gran % 2 H Nucleated RBC % 0 Sodium 143 Potassium 3.1 L D Chloride 112 H Carbon Dioxide 24.0 Anion Gap 7 BUN 17 Creatinine 0.8 D Estim Creat Clear Calc 59.4 L eGFR > 60 BUN/Creatinine Ratio 21 H Glucose 102 Calculated Osmolality 286 Calcium 8.7 Corrected Calcium 8.8 Phosphorus 3.3 Magnesium 1.8 Total Bilirubin 0.5 AST 42 H ALT 56 H Alkaline Phosphatase 263 H Total Protein 7.0 Albumin 3.9 Globulin 3.1 Albumin/Globulin Ratio 1.3 TSH 0.89 Quality Measures Quality Measures none Advance care planning discussed with:: patient Assessment & Plan Assessment Current Active Medications: Generic Name Dose Route Start Last Admin Trade Name Freq PRN Reason Stop Dose Admin Acetaminophen 650 mg 02/12/25 20:47 Acetaminophen 325 Mg Tablet PO 03/14/25 15:13 Q6H PRN Fever >100.3 or pain Hydrocodone Bitart/Acetaminophen 1 tab 02/13/25 12:19 Hydrocodone/Apap 10/325 Tab PO 02/18/25 12:18 Q4HR PRN PAIN 4-10 Amitriptyline HCl 25 mg 02/13/25 21:00 Amitriptyline Hcl 25 Mg Tablet PO 03/15/25 20:59 HS AUTUMN Amlodipine Besylate 2.5 mg 02/13/25 09:00 02/13/25 08:18 Amlodipine Besylate 2.5 Mg Tablet PO 03/15/25 08:59 2.5 mg QDAY AUTUMN Administration Atorvastatin Calcium 40 mg 02/13/25 21:00 Atorvastatin Calcium 20 Mg Tablet PO 03/15/25 20:59 QPM AUTUMN Baclofen 10 mg 02/13/25 08:15 02/13/25 08:18 Baclofen 10 Mg Tablet PO 03/15/25 08:14 10 mg TID AUTUMN Administration Diphenhydramine HCl 25 mg 02/13/25 21:00 Diphenhydramine Elix 25 Mg/10 Ml Udc PO 03/15/25 20:59 HS AUTUMN Gabapentin 600 mg 02/13/25 08:15 02/13/25 08:18 Gabapentin 300 Mg Capsule PO 03/15/25 08:14 600 mg TID AUTUMN Administration Heparin Sodium (Porcine) 5,000 unit 02/13/25 09:00 02/13/25 09:37 Heparin Sod Inj 5000 Unit/Ml Vial SC 02/27/25 08:59 Not Given Q12HR [facility] Ceftriaxone Sodium/Dextrose 1 gm in 50 mls @ 100 mls/hr 02/13/25 14:00 Rocephin/D5w 1gm Iv Premix IV 02/20/25 13:59 QDAY@1400 [facility] Home Medication- 1 puff 02/13/25 08:15 02/13/25 08:21 Please Speak With IH 03/15/25 08:14 Not Given Patient Caregiver To Q12H [facility] Have Rx Brought To [facility] Ondansetron HCl 4 mg 02/12/25 15:14 Ondansetron Inj 2 Mg/Ml Inj 2 Ml IV 03/14/25 15:13 Q6H PRN NAUSEA OR VOMITING Protocol Sennosides 1 tab 02/12/25 15:14 Senna Tablet PO 03/14/25 15:13 QDAY PRN constipation Protocol Plan Kimmie Wild is 64 yr female with PMH of, hypertension, neuropathy, chronic back pain, and insomnia who presenting to the ED today from home due to frequent falls. Patient has been experiencing increased number of falls since past month with about 5?6 in the past week. She denies any loss of consciousness, no prodromal symptoms, and dizziness resolves rapidly. Patient endorses decreased appetite and dysuria for past 2 days. #Frequent falls # Injury of left foot Patient has been experiencing increased number of falls in the past month with 5-6 in the past week. Does not lose any loss of consciousness, no prodromal symptoms. May be due to polypharmacy, orthostatic hypotension, cardiac etiology, decreased oral intake. CT head, cervical spine negative for acute changes. Left foot x-ray negative for any acute fracture TSH 0.89 - orthostatic vitals ?Echo pending ? Physical therapy ? Radiology recommendations to repeat imaging of foot in 1-2 days ? Continue with pain management Tylenol and [place] 10 q4hr PRn - Colin wrap and ice #Uncomplicated UTI # Leukocytosis Patient endorses decreased appetite and dysuria for past 2 days. UA positive for UTI with WBC 328, leukocyte esterase positive, 3+ bacteria. - Urine culture pending ? Continue antibiotics for 3 to 5 days #MARIUM Cr 1.5, GFR 38, BUN/creatinine< 20 indicating that etiology is less likely prerenal cause. However during history taking patient has endorsed decreased appetite with decreased water intake. No recent baseline creatinine noted in chart. -maintenance fluids tonight after another 1L bolus -avoid nephrotoxic agents -daily CMP #Transaminitis AST 56, ALT 70, ALP 248 on admission. May be due to dehydration. Physical exam is benign. - Monitor LFTs #Hx neuropathy #Hx hypertension #Hx COPD #Hx Chronic back pain #Hx Insomnia Resume home meds after rec. Health maintenance: Dispo: UTI, eval for frequent falls FEN: regular DVT prophylaxis:Lovenox CODE STATUS: Full code The patient's management plan was discussed with my attending physician Dr. Patel. Joseline Resendiz, PGY-1
[2025-02-13] MEDS: cefTRIAXone/D5w 1gm IV premix 1 GM/50 ML BAG IV (14:21)
[2025-02-13] MEDS: HYDROcodone/APAP 10/325 TAB PO ×3 (14:23→22:36)
--- NOTE | 2025-02-13 15:32 | XR_ITS ---
Examination: AP oblique lateral single view Technique: AP oblique left foot single view Exam date and time: February 13, 2025 1621 hrs. Comparison AP lateral left foot February 13, 2025 1327 hrs. Indications: Patient fell today with injury to foot, foot pain Findings: Prominent osteopenia No definite acute metatarsal or other fracture Impression: No definite foot fracture Suggest 1-2 day follow-up films as clinically warranted
--- NOTE | 2025-02-13 16:23 | ECHO_ITS ---
Transthoracic Echo Report Ht (in): 65 Wt (lb): 119 Exam Location: Echo Lab Status: Inpatient Line Therapist: Olga Westfall Indications: Procedure Performed: BP: 148 / 79 HR: 103 Technical Quality: Technically difficult study MEASUREMENTS (Male / Female) Normal Values 2D ECHO LV Diastolic Diameter PLAX 4.7 cm 4.2 - 5.9 / 3.9 - 5.3 cm LV Systolic Diameter PLAX 3.0 cm IVS Diastolic Thickness 1.0 cm 0.6 - 1.0 / 0.6 - 0.9 cm LVPW Diastolic Thickness 1.0 cm 0.6 - 1.0 / 0.6 - 0.9 cm LV Relative Wall Thickness 0.4 LVOT Diameter 1.9 cm Aortic Root Diameter 2.3 cm LA Systolic Diameter LX 3.1 cm 3.0 - 4.0 / 2.7 - 3.8 cm LA Volume Index 24.0 cm?/m? 16 - 28 cm?/m? DOPPLER AV Peak Velocity 125.0 cm/s AV Peak Gradient 6.3 mmHg AV Mean Gradient 3.0 mmHg AV Velocity Time Integral 28.0 cm LVOT Peak Velocity 99.8 cm/s LVOT Peak Gradient 4.0 mmHg LVOT Velocity Time Integral 22.5 cm LVOT Cardiac Index 4187.4 cm?/min?m? AV Area Cont Eq vti 2.3 cm? AV Area Cont Eq pk 2.3 cm? MV Area PHT 5.8 cm? MR Peak Velocity 378.5 cm/s MR Peak Gradient 57.3 mmHg Mitral E Point Velocity 74.7 cm/s Mitral A Point Velocity 95.1 cm/s Mitral E to A Ratio 0.8 LV E' Lateral Velocity 9.1 cm/s Mitral E to LV E' Lateral Ratio 8.2 LV E' Septal Velocity 8.4 cm/s Mitral E to LV E' Septal Ratio 8.9 FINDINGS Left Ventricle Normal left ventricular size, systolic function with no obvious regional wall motion abnormalities. Mild LVH. Normal left ventricular diastolic filling pattern for age. The ejection fraction is visually estimated at 55- 60 %. Right Ventricle The right ventricle is normal in size and systolic function. Left Atrium The left atrium is normal by two-dimensional, color flow and Doppler imaging with no structural abnormalities, no thrombus formation present. Right Atrium The right atrium is normal by two-dimensional imaging, color flow and Doppler imaging with no structural abnormalities, no thrombus formation present. Atrial Septum The interatrial septum appears normal with no evidence of a shunt. Aorta The aorta is normal by two-dimensional, color flow and Doppler interrogation. Mitral Valve Mild mitral regurgitation. Aortic Valve The aortic valve is not well visualized. Tricuspid Valve The tricuspid valve is normal by two-dimensional, color flow and Doppler interrogation. There is trace tricuspid valve regurgitation. Pulmonic Valve The pulmonic valve is not well visualized. There is no significant pulmonic valve regurgitation. Vessels The pulmonary artery appears normal. The inferior vena cava pulmonary and hepatic veins appear normal. Pericardium The pericardium is normal by two-dimensional imaging. There is no significant pericardial effusion. CONCLUSIONS Indication: frequent falls and dizziness Normal LV size and function. Mild LVH. Estimated EF 55-60%. Normal diastolic function. Normal RV size and systolic function. Normal RVSP. Mild MR. Trace TR. Joni Woodruff (Electronically Signed) Final Date: 13 February 2025 19:49
--- NOTE | 2025-02-13 19:01 | PC.NURSE ---
Rounded on patient with day shift nurse. Per patient, she does not want to be bothered frequently.
[2025-02-13] MEDS: AMITRIPTYLINE HCL 25 MG TABLET PO (21:31)
[2025-02-13] MEDS: HEPARIN SOD INJ 5000 UNIT/ML VIAL SC (21:31)
[2025-02-13] MEDS: DiphenhydrAMINE ELIX 25 MG/10 ML UDC PO (21:31)
[2025-02-13] MEDS: ATORVASTATIN CALCIUM 20 MG TABLET 40 MG PO (21:31)
[2025-02-14] VITALS (8 sets, daily range): BP systolic 129–153; BP diastolic 61–85; PULSE 88–110; RESP 17–20; TEMP 36.2–37.6; O2SAT 91–95
[2025-02-14] MEDS: HYDROcodone/APAP 10/325 TAB PO ×2 (03:36→09:36)
--- NOTE | 2025-02-14 05:13 | EKG_ITS ---
[facility] Test Date: 2025-02-14 Pat Name: GRETCHEN DOUGLAS [facility] Gender: Female Special Events Planner: RONALD : 1960 Requested By: Eladio Alvarenga Order Number: [id number] Reading MD: Eladio Alvarenga Measurements Intervals [place] Rate: 98 P: 77 MI: 156 QRS: 74 QRSD: 78 T: 77 QT: 328 QTc: 420 Interpretive Statements SINUS RHYTHM WITH OCCASIONAL SUPRAVENTRICULAR PREMATURE COMPLEXES Compared to ECG 02/12/2025 09:42:00 Ventricular premature complex(es) no longer present /store/S0/[id number]/ecg/[id number].pdf
[2025-02-14] MEDS: PANTOPRAZOLE INJ 40 MG VIAL IVP (05:33)
[2025-02-14] MEDS: GABAPENTIN 300 MG CAPSULE 600 MG PO (05:33)
[2025-02-14] MEDS: BACLOFEN 10 MG TABLET PO (05:33)
[2025-02-14 05:56] LABS: Basophils # (Auto) 0.1 Thou/mm3 (0.0-0.2); Basophils % (Auto) 0 % (0-2.5); Eosinophils # (Auto) 0.1 Thou/mm3 (0.0-0.5); Eosinophils % (Auto) 1 % (0-10); Hematocrit 38.1 % (36.0-46.0); Hemoglobin 12.8 g/dL (12.0-16.0); Immature Granulocytes % (Auto) 4 % (0-0); Immature Granulocytes Auto 0.48 Thou/mm3 (0.00-0.00); Lymphocytes # (Auto) 1.2 Thou/mm3 (1.0-4.8); Lymphocytes % (Auto) 9 % (10-50); Mean Corpuscular HGB Conc 33.6 g/dl (31.0-37.0); Mean Corpuscular Hemoglobin 32.7 pg (25.0-35.0); Mean Corpuscular Volume 97 fL (80-100); Monocytes # (Auto) 0.9 Thou/mm3 (0.0-0.8); Monocytes % (Auto) 7 % (0-12); Neutrophils # (Auto) 10.4 Thou/mm3 (1.8-7.7); Neutrophils % (Auto) 79 % (37-80); Nucleated Red Blood Cell % 0 /100 WBC (0); Platelet Count 370 Thou/mm3 (140-440); RDW Standard Deviation 48.2 fL (36.4-46.3); Red Blood Count 3.91 Miln/mm3 (4.00-5.20); White Blood Count 13.1 Thou/mm3 (3.6-11.0)
[2025-02-14 06:28] LABS: Alanine Aminotransferase 95 U/L (10-49); Albumin/Globulin Ratio 1.3 (1.2-2.2); Alkaline Phosphatase 391 U/L (46-116); Anion Gap 8 (7-16); Aspartate Amino Transferase 118 U/L (0-34); BUN/Creatinine Ratio 14 Ratio (12-20); Bilirubin,Total 0.7 mg/dL (0.3-1.2); Blood Urea Nitrogen 11 mg/dL (9-23); Calcium 9.4 mg/dL (8.3-10.6); Calcium (Corrected) 9.4 mg/dL (8.5-10.1); Chloride 106 mMol/L (98-107); Creatinine (Component) 0.8 mg/dL (0.6-1.3); Estimated Creatinine Clearance 59.4 mL/min (>60); Globulin 3.2 gm/dL (2.3-3.5); Glucose 102 mg/dL (74-106); Osmolality,Calculated 280 (275-295); Potassium 3.9 mMol/L (3.4-5.1); Sodium 141 mMol/L (136-145); Total Protein 7.2 gm/dL (5.7-8.2); Troponin I < 0.020 ng/mL (0.0-0.045); eGFR > 60 See Note
[2025-02-14] MEDS: amLODIPine BESYLATE 2.5 MG TABLET PO (09:37)
[2025-02-14] MEDS: HEPARIN SOD INJ 5000 UNIT/ML VIAL SC (09:38)
--- NOTE | 2025-02-14 10:23 | PC.NURSE ---
stated ok to remove tele box now
--- NOTE | 2025-02-14 11:44 | PC.SS ---
Kimmie Wild is 64-year-old female admitted to Med-Surg for Fall UTI. SS conducted bedside contact with the patient to complete initial assessment and to discuss discharge planning.? Patient confirmed demographic information. She identifies Ubaldo Wild [phone] as her surrogate decision maker. Patient resides at home with her . Pt is typically able to complete most ADL?s independently, but has been progressively weak and falling. Pts PCP is Dr. Chaudhari (last visit was 2 months ago) and her pharmacy of choice is [facility]. DC options discussed, pt wishes to return home. Pts family will provide transportation upon DC. No further intervention required at this time, healthcare social worker would be available to address any further concerns. DC Plan: Home Contact: -Ubaldo PCP: Fara
--- NOTE | 2025-02-14 11:48 | PC.SS ---
Walkers The diagnosis creates mobility limitation that significantly impairs ability to participate in the patients activities of daily living either in their entirety, or in a reasonable time frame. Also the patient is able to safely use the walker and the patient?s mobility is sufficiently resolved with the use of the walker and cane has been ruled out.
--- NOTE | 2025-02-14 15:34 | PC.CM ---
I did not see a preference for home health agency so I sent to all agencies.
--- NOTE | 2025-02-14 16:21 | PD.RESDS ---
Planned Discharge Date 02/14/25 DS: Providers Provider Date of admission: 02/12/25 15:14 Primary care physician: Venkat Chaudhari MD Admitting Provider: So Lam MD Attending Provider on Admission: Mauri Patel DO Consults: 02/12/25 16:45 Referral Physical Therapy Routine Comment: Physician Instructions: Instructions: Has history of frequent falls with 5-6 in past week. Attending Provider on DC: Mauri Patel DO Discharging Provider: Mauri Patel DO DS: Diagnosis Problem List Completed Was Problem List Reviewed/Reconciled?: Yes Hospital Course Hospital Course Hospital course: Reason for hospitalization: frequent falls, Ecoli UTI Kimmie Wild is 64 yr female with PMH of, hypertension, neuropathy, chronic back pain, and insomnia who presented to [facility] ED on 02/12/25 with complaint of frequent falls and dysuria. Patient had been experiencing increased number of falls since past month with about 5?6 in the past week. Before admission she fell twice. Feeling slightly dizzy and fell while was trying to support her. Patient hit her head on the chair and landed on her back also hitting her left foot. She denied any loss of consciousness, no prodromal symptoms, and dizziness resolved rapidly. She also endorsed decreased appetite and dysuria for few days before admission. Patient was admitted for management of UTI with antibiotics and evaluation of frequent falls. Initial labs showed elevated WBC (19), Cr 1.5, UA positive for UTI with WBC 328, leukocyte esterase positive, 3+ bacteria. Chest imaging negative for active disease, CT head negative for acute changes, cervical spine negative, EKG showing no ST changes--in normal sinus rhythm. Left foot xray was negative for any acute fractures. Workup for falls including echo, orthostatic vitals, electrolytes, TSH were unremarkable. Urine culture grew Ecoli. She was started on ceftriaxone with transition to oral Keflex for discharge. Patient should continue to use walker for assistance per physical therapy team. Patient is now in stable condition and ready for discharge. Recommendations were given as below. Discharge Recommendations: Resume previous medications. Finish cephalexin course for 3 more days for treatment of your UTI. Continue taking pantoprazole 30 mg daily for treatment of acid refulx. Follow up with PCP in the next week. Continue using walker for assistance. If you don't have PCP, please call [facility] at [phone]. Hospital Diagnoses: #Frequent falls # Injury of left foot #Uncomplicated UTI # Leukocytosis #MARIUM #Transaminitis #Hx neuropathy #Hx hypertension #Hx COPD #Hx Chronic back pain #Hx Insomnia #Tobacco use The patient's management plan was discussed with my attending physician Dr. Patel. Joseline Resendiz MD, PGY-1 Time spent discussing smoking cessation with patient: more than 10 minutes Time Spent with Patient Time attestation: Total time spent providing and/or coordinating discharge services: Time spent: Greater than 30 minutes Home Health Home Health Referral Orders: 02/14/25 09:11 Home Health Referral Routine Reason For Exam: dbility Home-Bound The patient must either because of illness or injury, need the aid of supportive devices such as crutches, canes, wheelchairs, and walkers; the use of special transportation; or the assistance of another person in order to leave their place of residence; OR have a condition such that leaving his or her home is medically contraindicated. In addition, the patient also meets the following criteria: patient is normally unable to leave the home and leaving home requires considerable taxing effort. Addendum to Home Health Certification Practitioner's Certification: I certify that the patient has been under my care in the hospital and the care of attending physician (see below). We had a jyjt-oh-fyxo encounter on (see date below). My clinical findings indicate that the patient is home bound per the above criteria and the Home Health Services noted in these orders are medically necessary. The primary reason for the vusw-ee-[id number] encounter is related to the fact that the patient requires home health services. Date Certifying Dcog-ju-Ajem Physician Encounter: 02/12/25 Physician's Name who will Assume Oversight for Services: Venkat Chaudhari Physician's Phone No.who will Assume Oversight for Service: [employer] SUPERINTENDENT - Community Resources: No PT to Evaluate: Yes PT to evaluate and provide a treatmnet plan to increase patient's mobility and strength. Wound Care: No IV Therapy: No Discontinue PICC Line Once Treatment Complete: Yes RN Safety Evaluation: Yes RN to evaluate and create a plan of care that will produce positive outcomes. Palliative Treatment: No Palliative treatment and evaluate the need for hospice. Home Health Aide - Personal Care: No Home Health Aide to assist with any ADL's. Exam Vital Signs Temp Pulse Resp BP Pulse Ox O2 Del Method 99.6 F 109 H 20 132/80 H 95 Room Air 02/14/25 11:32 02/14/25 11:32 02/14/25 11:32 02/14/25 11:32 02/14/25 11:32 02/14/25 11:32 Narrative Exam General: Elderly lady, no acute distress, cooperative HEENT: NCAT, No JVD noted. Mucosa dry, missing front teeth. Pupils are equal and reactive to light bilaterally Cardiovascular: Normal S1 and S2. Regular rate and rhythm. Respiratory: Lungs are clear to auscultation bilaterally. No wheezing or crackles heard. Abdomen: Soft, nontender, not distended, normal bowel sounds. Skin: Warm to touch, dry, no rashes noted. Bruising noticed on knees bilaterally Musculoskeletal: Left foot swollen and tender to touch. Left foot wrapped in Colin wrapping with ice. Able to move all 4 extremities. No pitting edema Neuro: Alert and oriented x3. No focal neuro deficits. Psych: Normal affect and mood Discharge Plan Plan Patient Disposition: Home w/HOME HEALTH Patient condition on transfer: Stable Prescriptions/Referrals Prescriptions/Med Rec: New cephalexin 500 mg tablet 500 mg PO BID Qty: 6 0RF pantoprazole [Protonix] 40 mg tablet,delayed release (DR/EC) 40 mg PO QDAY 30 Days Qty: 30 0RF Continued gabapentin 600 mg PO TID amitriptyline 25 mg PO HS baclofen 10 mg Tablet 10 mg PO TID albuterol sulfate 90 mcg/actuation HFA aerosol inhaler 2 inh INHALATION Q4H PRN (Reason: shortness of breath or wheezing) budesonide-formoterol 160-4.5 mcg/actuation HFA aerosol inhaler 1 puff INHALATION Q12H atorvastatin 40 mg tablet 40 mg PO QPM amlodipine 2.5 mg tablet 2.5 mg PO QDAY olmesartan 5 mg tablet 5 mg PO QDAY Referrals: Venkat Chaudhari MD [Primary Care Provider] - Patient/Caregiver Discharge Instructions Discharge Activity: as per physical therapy Other Discharge Activity Instructions:: Resume previous medications. Finish cephalexin course for 3 more days for treatment of your UTI. Continue taking pantoprazole 30 mg daily for treatment of acid refulx. Follow up with PCP in the next week. Continue using walker for assistance. If you don't have PCP, please call [facility] at [phone]. Other Discharge Diet Instructions: Try to drink 40-50oz water/day. Education Materials: Urinary Tract Infections in Women, What Is Syncope? Print Language: Welsh Stand Alone Forms: Mis Award Info., Patient Portal Info Letter Discharge Order Discharge Orders: Discharge (Routine); Ordered 02/14/25 Ordered By: Daniel Sanders Quality Discharge Quality Measures VTE prophylaxis Attestestation MD Attestation I have discussed and was present for the essential components of the discharge history, physical examination, diagnosis, and discharge treatment plan with the resident. I agree with the patient's discharge care as documented by the resident and amended herein by me. Tenzin Patel, DO. The patient understood all discharge instructions, all questions were answered satisfactorily. The patient was instructed to return to the Emergency Department is symptoms worsened or persisted. Although this document has been carefully reviewed, there may still be some phonetic and other typographical errors. These errors are purely grammatical due to imperfections in the software program and should not be construed in any way to compromise the substance of the patient's medical care during this visit.
--- NOTE | 2025-02-14 17:33 | PC.CM ---
[facility] accepted patient. Pending start of care date.
--- NOTE | 2025-02-15 08:19 | PC.CC ---
SOC for HH with [facility] is 02/17
== END 2025-02-14 11:35 | disposition home health service (06) | DRG 690 ==
LOC: SERX 15:22 → SERHOLD 16:01 → S3NX 17:36
PROVIDERS: Admitting Provider Student in an Organized Health Care Education/Training Program; Emergency Provider Emergency Medicine; PCP Family Medicine; Visit Provider Student in an Organized Health Care Education/Training Program
DX: N39.0 Urinary tract infection, site not specified (principal); N17.9 Acute kidney failure, unspecified; G62.9 Polyneuropathy, unspecified; M54.9 Dorsalgia, unspecified; G89.29 Other chronic pain; G47.00 Insomnia, unspecified; R29.6 Repeated falls; I10 Essential (primary) hypertension; F17.210 Nicotine dependence, cigarettes, uncomplicated; R74.01 Elevation of levels of liver transaminase levels; J44.9 Chronic obstructive pulmonary disease, unspecified; M25.572 Pain in left ankle and joints of left foot; M79.672 Pain in left foot; W19.XXXA Unspecified fall, initial encounter; Y93.K1 Activity, walking an animal; Z56.0 Unemployment, unspecified; Y92.018 Other place in single-family (private) house as the place of occurrence of the external cause; B96.20 Unspecified Escherichia coli [E. coli] as the cause of diseases classified elsewhere; Z88.2 Allergy status to sulfonamides; Z88.5 Allergy status to narcotic agent; Z79.899 Other long term (current) drug therapy
CPT/HCPCS: 36415; 70450; 71045; 72125; 73620; 80053; 81001; 83605; 83735; 83880; 84100; 84145; 84443; 84484; 85025; 85610; 85730; 87077; 87086; 87186; 93005; 93306; 96361; 96365; 97162; J0696; J1643; J1650; J2470; J7030; A9270

== ENCOUNTER → 2025-03-12 | Outpatient (CLI) | payer MEDICARE, SELFPAY ==
--- NOTE | 2025-03-12 12:00 | XR_ITS ---
Examination: Thyroid sonography complete TECHNIQUE: Grayscale sonographic images thyroid lobes Date and time: March 12, 2025 1159 hours INDICATIONS: 13 mm left thyroid nodule on CT chest August 22, 2024 FINDINGS: Right thyroid 4.6 cm Upper pole nodule 6 x 9 mm, 11 x 6 mm Midpole nodule 9 x 9 mm Lower pole nodule 16 x 9 mm, 11 x 9 mm Isthmus nodule vascular 2.2 x 1.8 cm Left thyroid 5.0 cm Upper pole nodule 18 x 14 mm Midpole nodule 9 x 9 mm Lower pole nodule 17 x 11 mm, 21 x 16 mm IMPRESSION: Numerous thyroid nodules as above, the largest measured as above Consider ultrasound-guided fine-needle aspiration of the large vascular isthmus nodule and the larger lower pole vascular left thyroid nodule
== END | disposition home or self-care (01) ==
LOC: CDIM 11:44
PROVIDERS: PCP Family Medicine; Referring Provider Family Medicine; Visit Provider Family Medicine
DX: E04.2 Nontoxic multinodular goiter (principal)
CPT/HCPCS: 76536

== ENCOUNTER → 2025-04-13 | Outpatient (CLI) | payer MEDICARE, SELFPAY ==
--- NOTE | 2025-04-13 13:00 | XR_ITS ---
Examination: CT chest, without intravenous contrast. Sagittal and coronal 2-D reconstructions. Exam date and time: April 13, 2025 1254 hours INDICATIONS: COPD diagnosis CT chest August 22, 2024 13 mm left thyroid nodule, 8mm pulmonary nodule left upper lobe CTDI:vol (mGy) 5.88 DLP: (mGycm) 219 Technique: Multiple 3.0 mm axial sections of the chest to been obtained. Bone and lung density settings are obtained. Sagittal and coronal 2-D reconstructions have been obtained. Low dose protocols were performed. One or more of the following dose reduction techniques were used; automated exposure control, adjustment of the mA and/or KV according to patient size, use of iterative reconstruction technique. Findings: 12 mm calcified left thyroid nodule No thoracic aortic aneurysm dilatation Pulmonary artery segments are not enlarged COPD, airspace destruction bilaterally Stable 8mm pulmonary nodule left upper lobe No new pulmonary nodules No pneumonia or pulmonary edema No focal liver or splenic lesion Severe osteopenia with chronic osteoporotic compression T9 IMPRESSION: COPD Stable 8mm pulmonary nodule left upper lobe
== END | disposition home or self-care (01) ==
LOC: CCTX 12:33
PROVIDERS: PCP Family Medicine; Referring Provider Family Medicine; Visit Provider Family Medicine
DX: M85.88 Other specified disorders of bone density and structure, other site (principal); R91.1 Solitary pulmonary nodule; M48.54XA Collapsed vertebra, not elsewhere classified, thoracic region, initial encounter for fracture; E04.1 Nontoxic single thyroid nodule
CPT/HCPCS: 71250

== ENCOUNTER → 2025-05-16 | Outpatient (CLI) | payer MEDICARE, SELFPAY ==
[2025-05-15 08:06] LABS: Basophils # (Auto) 0.0 Thou/mm3 (0.0-0.2); Basophils % (Auto) 1 % (0-2.5); Eosinophils # (Auto) 0.0 Thou/mm3 (0.0-0.5); Eosinophils % (Auto) 0 % (0-10); Hematocrit 38.3 % (36.0-46.0); Hemoglobin 12.9 g/dL (12.0-16.0); Immature Granulocytes Auto 0.02 Thou/mm3 (0.00-0.00); Lymphocytes # (Auto) 1.4 Thou/mm3 (1.0-4.8); Lymphocytes % (Auto) 18 % (10-50); Mean Corpuscular HGB Conc 33.7 g/dl (31.0-37.0); Mean Corpuscular Hemoglobin 32.9 pg (25.0-35.0); Mean Corpuscular Volume 98 fL (80-100); Monocytes # (Auto) 0.4 Thou/mm3 (0.0-0.8); Monocytes % (Auto) 6 % (0-12); Neutrophils # (Auto) 5.7 Thou/mm3 (1.8-7.7); Neutrophils % (Auto) 75 % (37-80); Nucleated Red Blood Cell # 0.00 Thou/mm3 (0.00-0.00); Nucleated Red Blood Cell % 0 /100 WBC (0); Platelet Count 356 Thou/mm3 (140-440); RDW Standard Deviation 46.3 fL (36.4-46.3); Red Blood Count 3.92 Miln/mm3 (4.00-5.20); White Blood Count 7.6 Thou/mm3 (3.6-11.0)
[2025-05-15 08:26] LABS: INR 1.0 (0.9-1.3); Partial Thromboplastin Time 26.8 Seconds (22.0-36.0); Prothrombin Time 11.0 Seconds (9.0-12.2)
--- NOTE | 2025-05-16 | XR_ITS ---
Examination: Ultrasound-guided fine needle percutaneous aspiration thyroid nodule, left. Thyroid sonography, limited Exam date and time: May 16, 2025 1022 hours INDICATIONS: Vascular left thyroid nodule on thyroid sonogram March 12, 2025. Technique: A timeout was completed verifying correct patient, procedure, site, positioning and special equipment if applicable. The patient was placed in supine position for the thyroid fine needle percutaneous aspiration The patient's left neck was prepped and draped in sterile fashion. Maximum barrier sterile technique, hand hygiene, ultrasound sterile technique. 1% lidocaine was used to anesthetize the skin and subcutaneous tissues to the patient's right thyroid nodule. Multiple fine needle aspirations were performed and multiple thyroid specimens placed in preservative according to the [facility] protocol. Specimens appears satisfactory. The attending radiologist was present for the entire procedure. Estimated blood loss 3 cc. The patient tolerated the procedure well and there were no complications. Impression: Successful ultrasound-guided fine-needle percutaneous aspiration thyroid nodule, left thyroid nodule.
--- NOTE | 2025-05-16 10:30 | XR_ITS ---
Examination: Ultrasound-guided fine needle percutaneous aspiration thyroid nodule, isthmus thyroid nodule. Thyroid sonography, limited Indications: Isthmus nodule on thyroid sonogram March 12, 2025 Exam date and time: May 16, 2025 1021 hours. Technique: A timeout was completed verifying correct patient, procedure, site, positioning and special equipment if applicable. The patient was placed in supine position for the thyroid fine needle percutaneous aspiration The patient's central neck was prepped and draped in sterile fashion. Maximum barrier sterile technique, hand hygiene, ultrasound sterile technique. 1% lidocaine was used to anesthetize the skin and subcutaneous tissues to the patient's right thyroid nodule. Multiple fine needle aspirations were performed and multiple thyroid specimens placed in preservative according to the [facility] protocol. Specimens appears satisfactory. The attending radiologist was present for the entire procedure. Estimated blood loss 3 cc. The patient tolerated the procedure well and there were no complications. Impression: Successful ultrasound-guided fine-needle percutaneous aspiration thyroid nodule, isthmus nodule
== END | disposition home or self-care (01) ==
LOC: SIRX 09:56
PROVIDERS: Radiology Diagnostic Radiology; PCP Family Medicine; Referring Provider Family Medicine; Visit Provider Family Medicine
DX: E04.2 Nontoxic multinodular goiter (principal); Z01.812 Encounter for preprocedural laboratory examination
CPT/HCPCS: 10005; 10006; 36415; 85025; 85610; 85730

== ENCOUNTER → 2025-10-01 | Outpatient (CLI) | payer MEDICARE, SELFPAY ==
[2025-09-26 10:31] LABS: Basophils # (Auto) 0.0 Thou/mm3 (0.0-0.2); Basophils % (Auto) 0 % (0-2.5); Eosinophils # (Auto) 0.0 Thou/mm3 (0.0-0.5); Eosinophils % (Auto) 0 % (0-10); Hematocrit 36.4 % (36.0-46.0); Hemoglobin 12.1 g/dL (12.0-16.0); Immature Granulocytes Auto 0.03 Thou/mm3 (0.00-0.00); Lymphocytes # (Auto) 1.1 Thou/mm3 (1.0-4.8); Lymphocytes % (Auto) 10 % (10-50); Mean Corpuscular HGB Conc 33.2 g/dl (31.0-37.0); Mean Corpuscular Hemoglobin 32.6 pg (25.0-35.0); Mean Corpuscular Volume 98 fL (80-100); Monocytes # (Auto) 0.5 Thou/mm3 (0.0-0.8); Monocytes % (Auto) 5 % (0-12); Neutrophils # (Auto) 9.3 Thou/mm3 (1.8-7.7); Neutrophils % (Auto) 84 % (37-80); Nucleated Red Blood Cell # 0.00 Thou/mm3 (0.00-0.00); Nucleated Red Blood Cell % 0 /100 WBC (0); Platelet Count 363 Thou/mm3 (140-440); RDW Standard Deviation 43.3 fL (36.4-46.3); Red Blood Count 3.71 Miln/mm3 (4.00-5.20); White Blood Count 11.0 Thou/mm3 (3.6-11.0)
[2025-09-26 10:42] LABS: INR 1.0 (0.9-1.3); Partial Thromboplastin Time 27.0 Seconds (22.0-36.0); Prothrombin Time 10.3 Seconds (9.0-12.2)
--- NOTE | 2025-10-01 10:30 | XR_ITS ---
Examination: Ultrasound-guided fine needle percutaneous aspiration thyroid nodule, left thyroid nodule. Thyroid sonography, limited Exam date and time: October 01 2025, 1039 hours INDICATIONS: Left thyroid nodule on thyroid sonogram 06/12/2025. Technique: A timeout was completed verifying correct patient, procedure, site, positioning and special equipment if applicable. The patient was placed in supine position for the thyroid fine needle percutaneous aspiration The patient's left neck was prepped and draped in sterile fashion. Maximum barrier sterile technique, hand hygiene, ultrasound sterile technique. 1% lidocaine was used to anesthetize the skin and subcutaneous tissues to the patient's right thyroid nodule. Multiple fine needle aspirations were performed and multiple thyroid specimens placed in preservative according to the [facility] protocol. Specimens appears satisfactory. The attending radiologist was present for the entire procedure. Estimated blood loss 3 cc. The patient tolerated the procedure well and there were no complications. Impression: Successful ultrasound-guided fine-needle percutaneous aspiration thyroid nodule, left thyroid nodule.
--- NOTE | 2025-10-01 10:30 | XR_ITS ---
Examination: Ultrasound-guided fine needle percutaneous aspiration thyroid nodule, isthmus nodule. Thyroid sonography, limited Exam date and time: October 01, 2025, 1042 hours INDICATION: Isthmus nodule on thyroid sonogram 06/12/2025. Technique: A timeout was completed verifying correct patient, procedure, site, positioning and special equipment if applicable. The patient was placed in supine position for the thyroid fine needle percutaneous aspiration The patient's central neck was prepped and draped in sterile fashion. Maximum barrier sterile technique, hand hygiene, ultrasound sterile technique. 1% lidocaine was used to anesthetize the skin and subcutaneous tissues to the patient's right thyroid nodule. Multiple fine needle aspirations were performed and multiple thyroid specimens placed in preservative according to the [facility] protocol. Specimens appears satisfactory. The attending radiologist was present for the entire procedure. Estimated blood loss 3 cc. The patient tolerated the procedure well and there were no complications. Impression: Successful ultrasound-guided fine-needle percutaneous aspiration thyroid nodule, isthmus nodule.
== END | disposition home or self-care (01) ==
LOC: SDIM 10:14
PROVIDERS: Student in an Organized Health Care Education/Training Program; PCP Family Medicine
DX: E04.2 Nontoxic multinodular goiter (principal); D34 Benign neoplasm of thyroid gland
CPT/HCPCS: 10005; 36415; 85025; 85610; 85730

== ENCOUNTER 2025-10-18 08:42 | Outpatient (RCR) | payer MEDICARE, SELFPAY ==
--- NOTE | 2025-10-18 09:15 | PTNOTE_ITS ---
PT OP Initial Eval Patient Information Outpatient Physical Therapy Treatment Date: 10/18/25 Visit Reasons: POSTERIOR TIBIAL TENDONITIS RIGHT AND LEFT LEG Medical Diagnosis: M76.821; M76.822 Treatment Dx #1: Left Foot Pain Treatment Dx #2: Right Foot Pain Start of Care: 10/18/25 Date of Onset: January 2025 Smoking Status Smoking Status: Current every day smoker Cessation Counseling Provided: GRETCHEN was advised that quitting smoking is the single most important factor to protect the health of themselves and their family. Discussed the benefits of quitting smoking with patient. Encouraged patient to quit smoking and provided Cessation assistance materials and resources. Tobacco Use: Cigarette Years smoked: 20 Are you interested in quitting?: No Would you like additional Smoking Cessation Counseling?: No Initial Assessment Subjective: Pt is a 65 y/o female reports of bilateral ankle pain L>R since January after she pass out. Pt was admitted to the hospital and was released once she was stabilized. Pt still has intermittent pain but it has gotten better overal the months. Pt can still walk, stand, perform chores, and ADLs with less limitation. At this time Pt does not feel that physical therapy is necessary and is more concern about other conditions the doctor is trying to treat. Objective: Bilateral Ankle AROM: all motions are WFL Bilateral Ankle MMTs: grossly 4-/5 Bilateral Hip AROM: all motions are WFL Bilateral Hip MMTs: grossly 3+/5 Assessment: Pt demonstrate functional bilateral ankle AROM and strength leading to minimal limitation with ADLs. According to patient she prefers not to do physical therapy at this time and will follow up with PCP for further direction. Pt was evaluated and d/c from care; thank you for your referrals. [facility] Term and [facility] Living Goals 1) Eval and D/C 2) Follow up with MD [facility] Treatment Plan Frequency and Duration: 1x Certification Dates: 10/18/25 to 01/16/26 Procedure Charges OP PT Eval Mod Complex 30 minutes: Yes
== END 2025-10-31 23:59 | disposition home or self-care (01) ==
LOC: CPTX 08:42
PROVIDERS: PCP Podiatrist; Referring Provider Podiatrist; Visit Provider Podiatrist
DX: M25.572 Pain in left ankle and joints of left foot (principal); M25.571 Pain in right ankle and joints of right foot
CPT/HCPCS: 97162